=== PATIENT | female | born 1990 | race Caucasian/White ===

== ENCOUNTER 2022-07-18 19:31 | Emergency (ER) | payer MEDICAID ==
[~2022-07-18] VITALS: Ht 167.6 cm; Wt 57.0 kg
[2022-07-18 19:41] VITALS: BP 112/75
== END 2022-07-19 00:05 | disposition left against medical advice (07) ==
LOC: ER 19:31
DX: Z53.21 Procedure and treatment not carried out due to patient leaving prior to being seen by health care provider (principal)